=== PATIENT | male | born 1945 | race Caucasian/White ===

== ENCOUNTER → 2016-06-28 | Outpatient (REF) | payer MEDICARE, BC ==
[~2016-06-28] MED LIST: /AMIO20TA; /DILT30TAB; /GLIM2TA; ACET65TA; ALBU83IN; ASPI81TA3; COMBVENT; FLON0.05; GLUC1000; LEVO100T; LISI5TAB; PROV90AE; SIMV80TA; VARE1TA; VIAGRA; advair diskus; coumadin
[2016-06-28 12:40] LABS: ALBUMIN 3.7 GM/DL (3.2-5.2); ALBUMIN/GLOBULIN RATIO 1.23 (1.00-1.93); BILIRUBIN,TOTAL 0.4 MG/DL (0.2-1.0); CALCIUM LEVEL 8.8 MG/DL (8.8-10.2); CREATININE FOR GFR 2.2 MG/DL (0.70-1.30); GLOMERULAR FILTRATION RATE 31.5 (>42); POTASSIUM SERUM 4.5 MEQ/L (3.5-5.1); TOTAL PROTEIN 6.7 GM/DL (6.4-8.2)
[2016-06-28 12:50] LABS: MEAN CORPUSCULAR HEMOGLOBIN 32.1 pg (27.0-33.0); MEAN CORPUSCULAR HGB CONC 32.8 g/dl (32.0-36.5); MEAN CORPUSCULAR VOLUME 97.8 fl (80.0-96.0); RED CELL DISTRIBUTION WIDTH 13.1 % (11.5-14.5); WHITE BLOOD COUNT 7.8 K/mm3 (4.0-10.0)
== END ==
LOC: M SFHCADAM 10:19
PROVIDERS: ATTEND Family Medicine
DX: I12.9 Hypertensive chronic kidney disease with stage 1 through stage 4 chronic kidney disease, or unspecified chronic kidney disease (principal); N18.3 Chronic kidney disease, stage 3 (moderate); E11.40 Type 2 diabetes mellitus with diabetic neuropathy, unspecified; E78.2 Mixed hyperlipidemia; Z51.81 Encounter for therapeutic drug level monitoring; Z79.01 Long term (current) use of anticoagulants; Z23 Encounter for immunization
CPT/HCPCS: 80053; 80061; 82306; 83036; 85027; 85610; 90662; G0008; G0463

== ENCOUNTER → 2016-09-22 | Outpatient (CLI) | payer MEDICARE, BC ==
--- NOTE | 2016-09-22 12:12 | REP ---
Scarce NO lumbar spine five views: Comparison is 05/31/2006. There are abdominal right upper quadrant surgical clips. Vertebral body heights and alignment are normal and unchanged. There is mild degenerative disc disease at L5 S1. This is an interval change. The remainder of the disc spaces are unremarkable. There is no spondylolysis or spondylolisthesis. The pedicles, facets and sacroiliac articulations are unremarkable. Impression: Mild degenerative disc disease at L5 S1. Signed by Milo Rajan MD 09/22/2016 12:04 P
== END ==
LOC: M ADAMS 11:26
PROVIDERS: ATTEND Family Medicine
DX: M51.37 Other intervertebral disc degeneration, lumbosacral region (principal); Z51.81 Encounter for therapeutic drug level monitoring; Z79.01 Long term (current) use of anticoagulants

== ENCOUNTER → 2016-12-13 | Outpatient (REF) | payer MEDICARE, BC ==
[2016-12-13 20:00] LABS: MEAN CORPUSCULAR HEMOGLOBIN 32.1 pg (27.0-33.0); MEAN CORPUSCULAR VOLUME 103.6 fl (80.0-96.0); RED CELL DISTRIBUTION WIDTH 13.6 % (11.5-14.5); WHITE BLOOD COUNT 13.4 K/mm3 (4.0-10.0)
[2016-12-13 20:07] LABS: ALBUMIN 3.3 GM/DL (3.2-5.2); BILIRUBIN,TOTAL 0.6 MG/DL (0.2-1.0); CALCIUM LEVEL 8.4 MG/DL (8.8-10.2); CREATININE FOR GFR 2.33 MG/DL (0.70-1.30); GLOMERULAR FILTRATION RATE 29.4 (>42); POTASSIUM SERUM 4.3 MEQ/L (3.5-5.1); TOTAL PROTEIN 6.6 GM/DL (6.4-8.2)
== END ==
LOC: M SFHCADAM 15:16
PROVIDERS: ATTEND Family Medicine
DX: N18.3 Chronic kidney disease, stage 3 (moderate) (principal); E11.40 Type 2 diabetes mellitus with diabetic neuropathy, unspecified; I48.91 Unspecified atrial fibrillation; Z51.81 Encounter for therapeutic drug level monitoring; Z79.01 Long term (current) use of anticoagulants
CPT/HCPCS: 80053; 85027; 85610; G0463

== ENCOUNTER → 2017-05-25 | Outpatient (CLI) | payer MEDICARE, BC ==
[2017-05-25 13:57] LABS: ANION GAP 4 MEQ/L (8-16); BLOOD UREA NITROGEN 42 MG/DL (7-18); CARBON DIOXIDE LEVEL 35 MEQ/L (21-32); CHLORIDE LEVEL 102 MEQ/L (98-107); CREATININE FOR GFR 2.12 MG/DL (0.70-1.30); GLOMERULAR FILTRATION RATE 32.8 (>42); GLUCOSE, FASTING 185 MG/DL (70-100); POTASSIUM SERUM 4.6 MEQ/L (3.5-5.1); SODIUM LEVEL 141 MEQ/L (136-145)
[2017-05-25 14:06] LABS: ESTIMATED AVERAGE GLUCOSE 194 MG/DL (60-110); HEMOGLOBIN A1c 8.4 %
== END ==
LOC: M WUC 10:26
DX: E11.65 Type 2 diabetes mellitus with hyperglycemia (principal)
CPT/HCPCS: 83735

== ENCOUNTER → 2017-05-25 | Outpatient (CLI) | payer MEDICARE, BC ==
[2017-05-25 13:56] LABS: ALBUMIN 3.7 GM/DL (3.2-5.2); ANION GAP 3 MEQ/L (8-16); BLOOD UREA NITROGEN 44 MG/DL (7-18); CALCIUM LEVEL 8.9 MG/DL (8.8-10.2); CARBON DIOXIDE LEVEL 35 MEQ/L (21-32); CHLORIDE LEVEL 102 MEQ/L (98-107); GLOMERULAR FILTRATION RATE 33.1 (>42); GLUCOSE, FASTING 179 MG/DL (70-100); MAGNESIUM LEVEL 2.2 MG/DL (1.8-2.4); PHOSPHORUS LEVEL 2.9 MG/DL (2.5-4.9); POTASSIUM SERUM 4.7 MEQ/L (3.5-5.1); SODIUM LEVEL 140 MEQ/L (136-145)
== END ==
LOC: M WUC 10:31
DX: I50.32 Chronic diastolic (congestive) heart failure (principal); I48.0 Paroxysmal atrial fibrillation

== ENCOUNTER → 2017-05-31 | Outpatient (REF) | payer MEDICARE, BC | LOC: M SFHCLERA 12:40 | DX: L98.9 Disorder of the skin and subcutaneous tissue, unspecified (principal); C44.42 Squamous cell carcinoma of skin of scalp and neck (principal) | CPT/HCPCS: 11100; 88305 ==

== ENCOUNTER → 2017-06-29 | Outpatient (CLI) | payer MEDICARE, BC | LOC: M RAD 12:18 | DX: N18.4 Chronic kidney disease, stage 4 (severe) (principal) | CPT/HCPCS: 76775 ==

== ENCOUNTER → 2017-08-07 | Outpatient (REF) | payer MEDICARE, BC | LOC: M SFHCLERA 08:58 | DX: L57.0 Actinic keratosis (principal) | CPT/HCPCS: 88305 ==

== ENCOUNTER → 2017-09-14 | Outpatient (CLI) | payer MEDICARE, BC ==
[2017-09-14 16:31] LABS: HEMATOCRIT 51.6 % (42.0-52.0); MEAN CORPUSCULAR HEMOGLOBIN 31.4 pg (27.0-33.0); MEAN CORPUSCULAR VOLUME 101.2 fl (80.0-96.0); PLATELET COUNT, AUTOMATED 197 10^3/uL (150-450); RED CELL DISTRIBUTION WIDTH 13.9 % (11.5-14.5); WHITE BLOOD COUNT 11.9 10^3/uL (4.0-10.0)
[2017-09-14 16:53] LABS: TOTAL 25(OH) VITAMIN D 74.5 NG/ML (30.0-100.0)
[2017-09-14 17:02] LABS: ALBUMIN 3.6 GM/DL (3.2-5.2); ALBUMIN/GLOBULIN RATIO 1.06 (1.00-1.93); ALKALINE PHOSPHATASE 117 U/L (45-117); ALT/SGPT 25 U/L (12-78); ANION GAP 6 MEQ/L (8-16); AST/SGOT 16 U/L (7-37); BILIRUBIN,TOTAL 0.6 MG/DL (0.2-1.0); BLOOD UREA NITROGEN 32 MG/DL (7-18); CALCIUM LEVEL 8.8 MG/DL (8.8-10.2); CARBON DIOXIDE LEVEL 33 MEQ/L (21-32); CHLORIDE LEVEL 103 MEQ/L (98-107); CHOLESTEROL LEVEL 133 MG/DL (<200); CHOLESTEROL RISK RATIO 2.955 (<5); CREATININE FOR GFR 2.13 MG/DL (0.70-1.30); FREE T4 1.37 NG/DL (0.76-1.46); GLOMERULAR FILTRATION RATE 32.6 (>42); GLUCOSE, FASTING 156 MG/DL (70-100); HDL CHOLESTEROL 45 MG/DL (>40); LDL CHOLESTEROL 51.2 MG/DL (<100); NON-HDL-C 88 MG/DL; POTASSIUM SERUM 4.7 MEQ/L (3.5-5.1); SODIUM LEVEL 142 MEQ/L (136-145); TRIGLYCERIDES LEVEL 184 MG/DL (<150)
[2017-09-14 17:12] LABS: ESTIMATED AVERAGE GLUCOSE 180 MG/DL (60-110); HEMOGLOBIN A1c 7.9 %
== END ==
LOC: M WUC 13:08
DX: N18.3 Chronic kidney disease, stage 3 (moderate) (principal); E11.40 Type 2 diabetes mellitus with diabetic neuropathy, unspecified; E11.22 Type 2 diabetes mellitus with diabetic chronic kidney disease; E03.8 Other specified hypothyroidism; E78.2 Mixed hyperlipidemia; E55.9 Vitamin D deficiency, unspecified
CPT/HCPCS: 84443

== ENCOUNTER → 2017-11-09 | Outpatient (CLI) | payer MEDICARE, BC | LOC: M RAD 10:24 | DX: F17.210 Nicotine dependence, cigarettes, uncomplicated (principal); Z12.2 Encounter for screening for malignant neoplasm of respiratory organs | CPT/HCPCS: G0297 ==

== ENCOUNTER → 2017-12-18 | Outpatient (REF) | payer MEDICARE, BC | LOC: M SFHCLERA 19:06 | DX: C44.41 Basal cell carcinoma of skin of scalp and neck (principal) | CPT/HCPCS: 88305 ==

== ENCOUNTER → 2018-01-18 | Outpatient (REF) | payer MEDICARE, BC | LOC: M SFHCLERA 09:12 | DX: C44.212 Basal cell carcinoma of skin of right ear and external auricular canal (principal) | CPT/HCPCS: 88305 ==

== ENCOUNTER → 2018-03-01 | Outpatient (CLI) | payer MEDICARE, BC ==
[2018-03-01 12:29] LABS: HEMATOCRIT 48.7 % (42.0-52.0); MEAN CORPUSCULAR HEMOGLOBIN 31.4 pg (27.0-33.0); MEAN CORPUSCULAR HGB CONC 30.8 g/dl (32.0-36.5); MEAN CORPUSCULAR VOLUME 102.1 fl (80.0-96.0); PLATELET COUNT, AUTOMATED 175 10^3/uL (150-450); RED BLOOD COUNT 4.77 10^6/uL (4.30-6.10); RED CELL DISTRIBUTION WIDTH 13.4 % (11.5-14.5); WHITE BLOOD COUNT 9.3 10^3/uL (4.0-10.0)
[2018-03-01 13:21] LABS: ALBUMIN 3.5 GM/DL (3.2-5.2); ALBUMIN/GLOBULIN RATIO 1.09 (1.00-1.93); ALKALINE PHOSPHATASE 107 U/L (45-117); ALT/SGPT 17 U/L (12-78); ANION GAP 6 MEQ/L (8-16); AST/SGOT 11 U/L (7-37); BILIRUBIN,TOTAL 0.4 MG/DL (0.2-1.0); BLOOD UREA NITROGEN 36 MG/DL (7-18); CALCIUM LEVEL 9.3 MG/DL (8.8-10.2); CARBON DIOXIDE LEVEL 36 MEQ/L (21-32); CHLORIDE LEVEL 99 MEQ/L (98-107); CREATININE FOR GFR 2.05 MG/DL (0.70-1.30); GLUCOSE, FASTING 182 MG/DL (70-100); POTASSIUM SERUM 4.5 MEQ/L (3.5-5.1); SODIUM LEVEL 141 MEQ/L (136-145); TOTAL PROTEIN 6.7 GM/DL (6.4-8.2)
[2018-03-01 18:30] LABS: ESTIMATED AVERAGE GLUCOSE 200 MG/DL (60-110); HEMOGLOBIN A1c 8.6 %
== END ==
LOC: M WUC 10:00
DX: I48.91 Unspecified atrial fibrillation (principal); N18.3 Chronic kidney disease, stage 3 (moderate); E11.40 Type 2 diabetes mellitus with diabetic neuropathy, unspecified; E11.22 Type 2 diabetes mellitus with diabetic chronic kidney disease
CPT/HCPCS: 80053

== ENCOUNTER → 2018-03-06 | Outpatient (REF) | payer MEDICARE, BC ==
[2018-03-06 19:10] LABS: HEMATOCRIT 53.6 % (42.0-52.0); HEMOGLOBIN 16.7 g/dl (13.5-17.5); MEAN CORPUSCULAR HEMOGLOBIN 31.7 pg (27.0-33.0); MEAN CORPUSCULAR HGB CONC 31.2 g/dl (32.0-36.5); MEAN CORPUSCULAR VOLUME 101.9 fl (80.0-96.0); PLATELET COUNT, AUTOMATED 205 10^3/uL (150-450); RED BLOOD COUNT 5.26 10^6/uL (4.30-6.10); RED CELL DISTRIBUTION WIDTH 13.5 % (11.5-14.5); WHITE BLOOD COUNT 12.8 10^3/uL (4.0-10.0)
[2018-03-06 19:12] LABS: ALBUMIN 3.6 GM/DL (3.2-5.2); ALBUMIN/GLOBULIN RATIO 1.06 (1.00-1.93); ALKALINE PHOSPHATASE 121 U/L (45-117); ALT/SGPT 19 U/L (12-78); ANION GAP 6 MEQ/L (8-16); AST/SGOT 15 U/L (7-37); BILIRUBIN,TOTAL 0.5 MG/DL (0.2-1.0); BLOOD UREA NITROGEN 35 MG/DL (7-18); CALCIUM LEVEL 9.3 MG/DL (8.8-10.2); CARBON DIOXIDE LEVEL 34 MEQ/L (21-32); CHLORIDE LEVEL 100 MEQ/L (98-107); CHOLESTEROL LEVEL 153 MG/DL (<200); CHOLESTEROL RISK RATIO 3.122 (<5); CREATININE FOR GFR 2.16 MG/DL (0.70-1.30); GLUCOSE, FASTING 225 MG/DL (70-100); HDL CHOLESTEROL 49 MG/DL (>40); LDL CHOLESTEROL 61 MG/DL (<100); NON-HDL-C 104 MG/DL; POTASSIUM SERUM 4.3 MEQ/L (3.5-5.1); SODIUM LEVEL 140 MEQ/L (136-145); TRIGLYCERIDES LEVEL 217 MG/DL (<150)
[2018-03-06 19:16] LABS: TOTAL 25(OH) VITAMIN D 67.9 NG/ML (30.0-100.0)
[2018-03-06 19:43] LABS: ESTIMATED AVERAGE GLUCOSE 206 MG/DL (60-110); HEMOGLOBIN A1c 8.8 %
== END ==
LOC: M SFHCADAM 10:47
DX: N18.3 Chronic kidney disease, stage 3 (moderate) (principal); E11.40 Type 2 diabetes mellitus with diabetic neuropathy, unspecified; E11.22 Type 2 diabetes mellitus with diabetic chronic kidney disease; E03.8 Other specified hypothyroidism; E78.2 Mixed hyperlipidemia; E55.9 Vitamin D deficiency, unspecified
CPT/HCPCS: 84443

== ENCOUNTER → 2018-03-06 | Outpatient (CLI) | payer MEDICARE, BC | LOC: M ADAMS 11:09 | DX: J44.1 Chronic obstructive pulmonary disease with (acute) exacerbation (principal); N18.3 Chronic kidney disease, stage 3 (moderate); E11.40 Type 2 diabetes mellitus with diabetic neuropathy, unspecified; E11.22 Type 2 diabetes mellitus with diabetic chronic kidney disease; E03.8 Other specified hypothyroidism; E78.2 Mixed hyperlipidemia; E55.9 Vitamin D deficiency, unspecified | CPT/HCPCS: 71046; 84443 ==

== ENCOUNTER → 2018-05-29 | Outpatient (CLI) | payer MEDICARE, BC ==
[~2018-05-29] MED LIST changes: +AMOX/K; +NORCOTAB PO; +WARF-23
[2018-05-29 19:13] LABS: INR 1.87; PROTHROMBIN TIME 21.9 SECONDS (12.1-14.4)
== END ==
LOC: M WUC 13:39
PROVIDERS: ATTEND Family Medicine
DX: I48.91 Unspecified atrial fibrillation (principal)

== ENCOUNTER → 2018-07-09 | Outpatient (CLI) | payer MEDICARE, BC ==
--- NOTE | 2018-07-09 17:20 | REP ---
Urinary tract sonography: History: Diabetes. Chronic kidney disease stage III. Comparison renal sonography is June 29, 2017. Comparison CT study of the abdomen and pelvis is from December 21, 2015. Sonographic findings: Scanning at the level of the urinary bladder shows emptying ureteral jets from the right ureter but not the left on color Doppler interrogation of the urinary bladder lumen. There is moderate left-sided hydronephrosis. There is a shadowing 1.5 cm calculus in the lower pole collecting system region of the left kidney. Another 1.5 cm area of echogenic tissue is seen in the lower pole which may be further intrarenal nephrolithiasis. There is a cyst in the periphery of the right kidney 1.7 cm in greatest diameter at mid renal level. No mass lesion is seen. The kidneys are somewhat atrophic. The right kidney measures 8.7 x 5.7 x 4.7 cm. Left renal dimensions are 8.7 x 5.7 x 6.4 cm. The Doppler resistive index in the intralobar arteries of the left kidney is elevated to 0.82. Impression: Evidence of obstructive hydronephrosis left kidney with intrarenal nephrolithiasis on the left. Probable ureteral calculus. Bilateral renal cortical atrophy. Small cyst right kidney. Electronically Signed by Tenzin Esteves MD 07/09/2018 07:16 P
== END ==
LOC: M RAD 12:39
PROVIDERS: ATTEND Internal Medicine Nephrology
DX: N18.3 Chronic kidney disease, stage 3 (moderate) (principal); N28.1 Cyst of kidney, acquired; N26.1 Atrophy of kidney (terminal); E11.22 Type 2 diabetes mellitus with diabetic chronic kidney disease

== ENCOUNTER → 2018-07-16 | Outpatient (CLI) | payer MEDICARE, BC ==
[2018-07-16 14:39] LABS: HEMATOCRIT 48.5 % (42.0-52.0); HEMOGLOBIN 15.2 g/dl (13.5-17.5); MEAN CORPUSCULAR HEMOGLOBIN 31.8 pg (27.0-33.0); MEAN CORPUSCULAR HGB CONC 31.3 g/dl (32.0-36.5); MEAN CORPUSCULAR VOLUME 101.5 fl (80.0-96.0); PLATELET COUNT, AUTOMATED 197 10^3/uL (150-450); RED BLOOD COUNT 4.78 10^6/uL (4.30-6.10); WHITE BLOOD COUNT 9.8 10^3/uL (4.0-10.0)
[2018-07-16 14:54] LABS: INR 1.99
[2018-07-16 14:57] LABS: CREATININE FOR GFR 2.65 MG/DL (0.70-1.30)
[2018-07-16 14:58] LABS: ALBUMIN 3.4 GM/DL (3.2-5.2); BILIRUBIN,TOTAL 0.6 MG/DL (0.2-1.0); CHOLESTEROL RISK RATIO 3.372 (<5); FREE T4 1.31 NG/DL (0.76-1.46); GLOMERULAR FILTRATION RATE 25.3 (>42); POTASSIUM SERUM 4.7 MEQ/L (3.5-5.1); THYROID STIMULATING HORMONE 1.57 uIU/ML (0.358-3.740); TOTAL PROTEIN 6.8 GM/DL (6.4-8.2)
[2018-07-16 15:21] LABS: HEMOGLOBIN A1c 8.1 %
== END ==
LOC: M WUC 12:12
PROVIDERS: ATTEND Family Medicine
DX: N18.3 Chronic kidney disease, stage 3 (moderate) (principal); E11.40 Type 2 diabetes mellitus with diabetic neuropathy, unspecified; E03.8 Other specified hypothyroidism; E78.2 Mixed hyperlipidemia; I48.91 Unspecified atrial fibrillation

== ENCOUNTER → 2018-07-18 | Outpatient (CLI) | payer MEDICARE, BC ==
--- NOTE | 2018-07-18 15:43 | REP ---
Clinical: Chronic renal disease and nephrolithiasis. Comparison: 12/21/2015. Technique: Axial noncontrast images from the lung bases to the pubic symphysis with coronal and sagittal re-formations. Findings: Left kidney demonstrates moderate hydroureteronephrosis with few nonobstructing lower pole calculi measuring up to 3 mm as well as obstructing mid ureteral calculi measuring between 2 and 4 mm (images [id number]). The more distal left ureter appears collapsed to the UVJ and bladder. The right kidney is without nephrolithiasis or hydroureteronephrosis and includes stable 1.6 cm exophytic mid pole cyst. Mild chronic perinephric stranding noted bilaterally. Liver, spleen, pancreas, and bilateral adrenal glands are normal. Evidence of prior cholecystectomy. The enteric system is without obstruction or acute inflammatory process. Normal terminal ileum and appendix are identified in the right lower quadrant. Colonic and sigmoid diverticulosis noted without acute diverticulitis. Pelvis demonstrates normal bladder and age appropriate prostate/seminal vesicles. No ascites. No free air. No adenopathy. Atherosclerotic changes to the aorta and vasculature noted without aneurysm. Musculoskeletal structures demonstrate degenerative changes without focal osseous abnormality. Lung bases are clear. Impression: 1. Left-sided intrarenal and obstructing ureteral calculi with associated moderate hydronephrosis. Stable 1.6 cm exophytic right renal cyst. Mild chronic bilateral perinephric stranding and left renovascular calcifications. 2. Diverticulosis without acute diverticulitis. Electronically Signed by Junior Hendricks MD 07/18/2018 03:35 P
== END ==
LOC: M RAD 13:59
PROVIDERS: ATTEND Internal Medicine Nephrology
DX: N18.3 Chronic kidney disease, stage 3 (moderate) (principal); N13.1 Hydronephrosis with ureteral stricture, not elsewhere classified; N20.0 Calculus of kidney; N20.1 Calculus of ureter; N28.1 Cyst of kidney, acquired

== ENCOUNTER → 2018-07-26 | Outpatient (REF) | payer MEDICARE, BC ==
[~2018-07-26] MED LIST changes: -/AMIO20TA; -/DILT30TAB; -/GLIM2TA; +AMAR1TAB5; +AMIO1TAB; +DILT1TAB11; +HYDR-3715 PO; -NORCOTAB PO
[2018-07-26 14:20] LABS: APPEARANCE, URINE HAZY (CLEAR); BACTERIA, URINE AUTO 1+ (NEGATIVE); BILIRUBIN, URINE AUTO NEGATIVE (NEGATIVE); BLOOD, URINE BLOOD 1+ (NEGATIVE); COLOR, URINE YELLOW (YELLOW); GLUCOSE, URINE (UA) AUTO 2+ mg/dL (NEGATIVE); KETONE, URINE AUTO NEGATIVE (NEGATIVE); LEUKOCYTE ESTERASE, URINE AUTO TRACE (NEGATIVE); MUCUS, URINE SMALL (NEGATIVE); NITRITE, URINE AUTO NEGATIVE (NEGATIVE); PROTEIN, URINE AUTO 1+ mg/dL (NEGATIVE); RBC, URINE AUTO 2 /HPF (0-3); SPECIFIC GRAVITY URINE AUTO 1.016 (1.002-1.035); SQUAMOUS EPITHELIAL CELL UR AU 1 /HPF (0-6); UROBILINOGEN, URINE AUTO 0.2 mg/dL (0.0-2.0); WBC, URINE AUTO 10 /HPF (0-3)
== END ==
LOC: M SMT 13:33
PROVIDERS: ATTEND Nurse Practitioner Family
DX: N20.0 Calculus of kidney (principal)
CPT/HCPCS: 81001; 87086; G0463

== ENCOUNTER → 2018-08-23 | Outpatient (REF) | payer MEDICARE, BC ==
[2018-08-23 15:06] LABS: APPEARANCE, URINE HAZY (CLEAR); BACTERIA, URINE AUTO 1+ (NEGATIVE); BILIRUBIN, URINE AUTO NEGATIVE (NEGATIVE); BLOOD, URINE BLOOD 1+ (NEGATIVE); COLOR, URINE YELLOW (YELLOW); GLUCOSE, URINE (UA) AUTO 3+ mg/dL (NEGATIVE); KETONE, URINE AUTO NEGATIVE (NEGATIVE); LEUKOCYTE ESTERASE, URINE AUTO TRACE (NEGATIVE); MUCUS, URINE SMALL (NEGATIVE); NITRITE, URINE AUTO NEGATIVE (NEGATIVE); PROTEIN, URINE AUTO 2+ mg/dL (NEGATIVE); RBC, URINE AUTO 2 /HPF (0-3); SPECIFIC GRAVITY URINE AUTO 1.017 (1.002-1.035); SQUAMOUS EPITHELIAL CELL UR AU 0 /HPF (0-6); WBC, URINE AUTO 11 /HPF (0-3)
== END ==
LOC: M SMT 13:08
PROVIDERS: ATTEND Nurse Practitioner Family
DX: N20.0 Calculus of kidney (principal)
CPT/HCPCS: 81001; 87086; G0463

== ENCOUNTER → 2018-08-27 | Outpatient (CLI) | payer MEDICARE, BC ==
[2018-08-27 17:28] LABS: INR 1.91; PROTHROMBIN TIME 22.2 SECONDS (12.1-14.4)
== END ==
LOC: M WUC 12:20
PROVIDERS: ATTEND Family Medicine
DX: I48.91 Unspecified atrial fibrillation (principal)

== ENCOUNTER → 2018-08-29 | Outpatient (CLI) | payer MEDICARE, BC ==
--- NOTE | 2018-08-29 15:51 | REP ---
RENAL AND BLADDER ULTRASOUND: Real-time sonographic evaluation of the kidneys performed. Kidneys appear somewhat hyperechoic suggesting medical renal disease. Right kidney measures 9.4 x 4.8 x 4.4 cm and left kidney 10.7 x 5.5 x 5.6 cm. There is no right hydronephrosis. There is moderate left hydronephrosis. Proximal left ureter is dilated as well. Study is somewhat limited due to bowel gas and body habitus. Cyst in the mid right kidney laterally measures 1.5 x 1.6 x 1.9 cm. There appears to be two calcifications in the left lower collecting system measuring 8 mm and 4 mm in diameter. Urinary bladder is not well visualized, mildly distended, with no gross mass or calculus. Right ureteral jet is clearly visualized with Doppler color evaluation while the left ureteral jet could not be seen. IMPRESSION: Somewhat hyperechoic echotexture of the kidneys suggests medical renal disease. There is moderate left hydronephrosis as seen on the CT of 07/18/2018. This is likely due to persistent ureteral obstruction by a calculus which was seen on the prior CT. No left ureteral jet is visualized. There are two subcentimeter intrarenal calculi in the lower pole of the left kidney. There is no right hydronephrosis. There is a right renal cyst. Electronically Signed by Milo Bronson MD 08/29/2018 04:11 P
== END ==
LOC: M RAD 12:32
PROVIDERS: ATTEND Nurse Practitioner Family
DX: N20.0 Calculus of kidney (principal); N13.30 Unspecified hydronephrosis; Q61.02 Congenital multiple renal cysts

== ENCOUNTER → 2018-08-30 | Outpatient (REF) | payer MEDICARE, BC ==
[~2018-08-30] MED LIST changes: +ATOR80TA59; +BUDE0.5S6; +CALC1CAP31; +COMBAER6; +DILT180C28; +GLIP5TAB8; +HYDR2.5C; +IPRA0.00; +LEVO100T5; +TAMS1CAP17; +VENL75CA47; +VITA500045
== END ==
LOC: M SFHCPLAZ 17:40
PROVIDERS: ATTEND Dermatology
DX: L57.0 Actinic keratosis (principal)

== ENCOUNTER → 2018-09-19 | Outpatient (CLI) | payer MEDICARE, BC ==
--- NOTE | 2018-09-19 16:01 | REP ---
Clinical: Preoperative assessment. Nephrolithiasis . Comparison: 03/06/2018 . Technique: PA and lateral. Findings: The mediastinum and cardiac silhouette are within normal limits. Dual lead pacemaker in satisfactory position. The lung tran demonstrate chronic stable changes without acute consolidation, effusion, or pneumothorax. The skeletal structures are intact and normal. Impression: 1. No acute cardiopulmonary process. Electronically Signed by Junior Hendricks MD 09/19/2018 03:53 P
[2018-09-19 20:09] LABS: CREATININE FOR GFR 2.43 MG/DL (0.70-1.30); GLOMERULAR FILTRATION RATE 27.9 (>42); POTASSIUM SERUM 4.3 MEQ/L (3.5-5.1)
[2018-09-19 20:23] LABS: HEMATOCRIT 48.1 % (42.0-52.0); HEMOGLOBIN 14.8 g/dl (13.5-17.5); MEAN CORPUSCULAR HEMOGLOBIN 31.3 pg (27.0-33.0); MEAN CORPUSCULAR HGB CONC 30.8 g/dl (32.0-36.5); MEAN CORPUSCULAR VOLUME 101.7 fl (80.0-96.0); PLATELET COUNT, AUTOMATED 207 10^3/uL (150-450); RED BLOOD COUNT 4.73 10^6/uL (4.30-6.10); WHITE BLOOD COUNT 10.7 10^3/uL (4.0-10.0)
[2018-09-19 20:26] LABS: APPEARANCE, URINE HAZY (CLEAR); BACTERIA, URINE AUTO NEGATIVE (NEGATIVE); BILIRUBIN, URINE AUTO NEGATIVE (NEGATIVE); BLOOD, URINE BLOOD 1+ (NEGATIVE); COLOR, URINE YELLOW (YELLOW); GLUCOSE, URINE (UA) AUTO 2+ mg/dL (NEGATIVE); GRANULAR CAST, URINE AUTO 8 /LPF; KETONE, URINE AUTO NEGATIVE (NEGATIVE); LEUKOCYTE ESTERASE, URINE AUTO NEGATIVE (NEGATIVE); NITRITE, URINE AUTO NEGATIVE (NEGATIVE); PROTEIN, URINE AUTO 1+ mg/dL (NEGATIVE); RBC, URINE AUTO 18 /HPF (0-3); SPECIFIC GRAVITY URINE AUTO 1.013 (1.002-1.035); SQUAMOUS EPITHELIAL CELL UR AU 0 /HPF (0-6); UROBILINOGEN, URINE AUTO 0.2 mg/dL (0.0-2.0); WBC, URINE AUTO 5 /HPF (0-3)
[2018-09-19 20:32] LABS: INR 1.81; PROTHROMBIN TIME 21.3 SECONDS (12.1-14.4)
[2018-09-19 20:33] LABS: PARTIAL THROMBOPLASTIN TIME 39.2 SECONDS (25.4-37.6)
== END ==
LOC: M WUC 15:41
PROVIDERS: ATTEND Nurse Practitioner Family
DX: Z01.818 Encounter for other preprocedural examination (principal); N20.0 Calculus of kidney; Z79.01 Long term (current) use of anticoagulants

== ENCOUNTER → 2018-09-21 | Outpatient (REF) | payer MEDICARE, BC ==
[2018-09-21 20:43] LABS: APPEARANCE, URINE HAZY (CLEAR); BACTERIA, URINE AUTO NEGATIVE (NEGATIVE); BILIRUBIN, URINE AUTO NEGATIVE (NEGATIVE); BLOOD, URINE BLOOD 2+ (NEGATIVE); COLOR, URINE YELLOW (YELLOW); GLUCOSE, URINE (UA) AUTO 3+ mg/dL (NEGATIVE); KETONE, URINE AUTO NEGATIVE (NEGATIVE); LEUKOCYTE ESTERASE, URINE AUTO TRACE (NEGATIVE); MUCUS, URINE SMALL (NEGATIVE); NITRITE, URINE AUTO NEGATIVE (NEGATIVE); PROTEIN, URINE AUTO 2+ mg/dL (NEGATIVE); RBC, URINE AUTO 24 /HPF (0-3); SPECIFIC GRAVITY URINE AUTO 1.014 (1.002-1.035); SQUAMOUS EPITHELIAL CELL UR AU 0 /HPF (0-6); UROBILINOGEN, URINE AUTO 0.2 mg/dL (0.0-2.0); WBC, URINE AUTO 8 /HPF (0-3)
== END ==
LOC: M SMT 09:35
PROVIDERS: ATTEND Nurse Practitioner Family
DX: Z01.818 Encounter for other preprocedural examination (principal); N20.0 Calculus of kidney

== ENCOUNTER 2018-09-25 12:06 | Day surgery (SDC) | payer MEDICARE, BC ==
[~2018-09-25] VITALS: Ht 177.8 cm; Wt 90.7 kg
[~2018-09-25 12:06] MED LIST changes: +LR 1,000 ML IV SCH
[2018-09-25 13:02] LABS: INR 1.02; PROTHROMBIN TIME 13.5 SECONDS (12.1-14.4)
[2018-09-25] MEDS ORDERED: CONRAY-60 60% 50ML VIAL (Q9961) As Ordered ONE (13:25)
[2018-09-25] MEDS ORDERED: PROPOFOL 200 MG/20 ML VIAL As Ordered ONE (14:18)
[2018-09-25] MEDS ORDERED: MIDAZOLAM INJ 2 MG/2 ML VIAL (J2250) As Ordered ONE (14:18)
[2018-09-25] MEDS ORDERED: LIDOCAINE 2% INJ 100 MG/5 ML SDV (FOR ANES.) As Ordered ONE (14:18)
[2018-09-25] MEDS ORDERED: fentaNYL 100 MCG/2 ML INJECTION (J3010) As Ordered ONE (14:18)
[2018-09-25] MEDS ORDERED: ROCURONIUM BROMIDE 50 MG/5 ML VIAL As Ordered ONE (14:34)
[2018-09-25] MEDS ORDERED: VASOPRESSIN INJ 20 UNITS/ML VIAL As Ordered ONE (14:46)
[2018-09-25] MEDS ORDERED: ePHEDrine SULFATE 25 MG/5 ML(5MG/ML) SYRINGE As Ordered ONE (14:47)
[2018-09-25] MEDS ORDERED: PHENYLephrine HCL 500 MCG/5 ML (100MCG/ML) SYRINGE (J2370) As Ordered ONE ×2 (14:47→15:12)
[2018-09-25] MEDS ORDERED: dexameTHASONE 4 MG/ML 1ML VIAL (J1100) As Ordered ONE (14:55)
[2018-09-25] MEDS ORDERED: ONDANSETRON 4MG/2ML VIAL (J2405) As Ordered ONE (15:05)
[2018-09-25] MEDS ORDERED: SUGAMMADEX SODIUM 500 MG/5 ML VIAL (BRIDION) As Ordered ONE (15:17)
--- NOTE | 2018-09-25 15:55 | REP ---
C-ARM VIEWS DURING PLACEMENT OF LEFT URETERAL STENT: Three C-Arm views are performed. There is placement of a left ureteral stent with the proximal end coiled in the left renal pelvis and the distal end coiled in the urinary bladder. There is partial opacification of the left pelvicaliceal system with contrast. 7 seconds of fluoroscopy time utilized. Electronically Signed by Milo Bronson MD 09/27/2018 08:41 A
[2018-09-25] MEDS ORDERED: MORPHINE 10 MG/ML 1ML VIAL (J2270) IV PRN (16:15)
[2018-09-25] MEDS ORDERED: fentaNYL 100 MCG/2 ML INJECTION (J3010) IV PRN (16:15)
[2018-09-25] MEDS ORDERED: LR 1,000 ML IV SCH (16:15)
[2018-09-25] MEDS ORDERED: oxyBUTYnin 5 MG TAB PO PRN (16:15)
[2018-09-25] MEDS ORDERED: ONDANSETRON 4MG/2ML VIAL (J2405) IV PRN (16:15)
--- NOTE | 2018-09-25 16:37 | RO ---
DATE OF PROCEDURE: 09/25/2018 PREPROCEDURE DIAGNOSIS: Left kidney and ureteral stones. POSTPROCEDURE DIAGNOSIS: Left kidney and ureteral stones. PROCEDURE: Cystoscopy, left ureteroscopy with basket extraction of stones, left retrograde pyelogram with intraoperative interpretation of images, left ureteral stent placement. SURGEON: Dr. Choco Gilmore NURSE HEALTHCARE MANAGER: None. ANESTHESIA: General. OPERATIVE INDICATIONS: This is a 72-year-old male who approximately 2 months ago was found to have two obstructing mid left ureteral stones, as well as several smaller stones inside the left kidney. He was given a trial of passage and on subsequent ultrasound was still seen to have moderate left hydronephrosis, indicating that the stones did not pass. He was brought to the operating room today for treatment of the stones. DESCRIPTION OF PROCEDURE: The patient was brought to the operating room and general anesthesia induced. Prophylactic antibiotics were infused. He was then placed in the dorsal lithotomy position and prepped and draped in the usual sterile fashion. A rigid cystoscope was then inserted into the urethral meatus and advanced to the bladder. A guidewire was advanced up the left collecting system. I then went up the left collecting system alongside the guidewire and within the distal ureter, several stones measuring between 3-4 mm were seen. All these stones were removed using a basket. I then examined the more proximal ureter, and no stones were seen in the ureter. I then removed the short semi-rigid ureteroscope and advanced a ureteral access sheath up into the left collecting system. I went up the access sheath with a flexible ureteroscope. I then examined the kidney thoroughly, and only very tiny stone debris was seen inside the left kidney. No large stones were seen. A retrograde pyelogram was performed, notable for moderate to severe left hydronephrosis. No extravasation. I then withdrew the ureteroscope along with the access sheath and no stones were seen in the proximal to mid ureter. The distal ureter was also free of stones at this point. At this point, the previously placed wire was utilized to advance a 6-Yi x 22-32 cm JJ ureteral stent up into the left collecting system. The wire was then removed, and there were adequate curls of the stent in the left renal pelvis and in the bladder. The bladder was then emptied of all fluids and this marked the conclusion of the procedure. The patient was then taken out of the dorsal lithotomy position, awakened from anesthesia and transported to the recovery room in stable condition. Estimated blood loss: 5 mL. Complications: None. Specimens: Kidney stone fragments. PLAN: The patient will followup in the clinic in a week or two for stent removal.
[2018-09-25] MEDS ORDERED: ACETAMINOPHEN 1000MG 100ML IV BTL (OFIRMEV) (J0131 PER 10MG) As Ordered ONE (16:40)
[2018-09-25 18:15] VITALS: BP 176/84
== END 2018-09-25 18:22 | disposition home or self-care (01) ==
LOC: M SDC 12:06
PROVIDERS: ATTEND Urology
DX: N20.0 Calculus of kidney (principal); N20.1 Calculus of ureter; I10 Essential (primary) hypertension; E78.5 Hyperlipidemia, unspecified; Z95.0 Presence of cardiac pacemaker; E03.9 Hypothyroidism, unspecified; E11.9 Type 2 diabetes mellitus without complications; J44.9 Chronic obstructive pulmonary disease, unspecified; F17.210 Nicotine dependence, cigarettes, uncomplicated; Z79.01 Long term (current) use of anticoagulants; N40.0 Benign prostatic hyperplasia without lower urinary tract symptoms; Z92.3 Personal history of irradiation; Z88.0 Allergy status to penicillin; Z88.2 Allergy status to sulfonamides; Z79.899 Other long term (current) drug therapy
CPT/HCPCS: 36415; 52332; 52352; 74420; 82360; 85610; 88300; C1769; C1894; J0131; J0690; J1100; J2250; J2370; J2405; J3010; Q9961

== ENCOUNTER → 2018-10-16 | Outpatient (REF) | payer MEDICARE, BC ==
[~2018-10-16] MED LIST changes: -LR 1,000 ML IV SCH
[2018-10-16 13:53] LABS: APPEARANCE, URINE CLEAR (CLEAR); BACTERIA, URINE AUTO NEGATIVE (NEGATIVE); BILIRUBIN, URINE AUTO NEGATIVE (NEGATIVE); BLOOD, URINE BLOOD NEGATIVE (NEGATIVE); COLOR, URINE YELLOW (YELLOW); GLUCOSE, URINE (UA) AUTO 2+ mg/dL (NEGATIVE); KETONE, URINE AUTO NEGATIVE (NEGATIVE); LEUKOCYTE ESTERASE, URINE AUTO NEGATIVE (NEGATIVE); MUCUS, URINE SMALL (NEGATIVE); NITRITE, URINE AUTO NEGATIVE (NEGATIVE); PROTEIN, URINE AUTO 2+ mg/dL (NEGATIVE); RBC, URINE AUTO 0 /HPF (0-3); SQUAMOUS EPITHELIAL CELL UR AU 0 /HPF (0-6); WBC, URINE AUTO 1 /HPF (0-3)
== END ==
LOC: M SMT 12:50
PROVIDERS: ATTEND Urology
DX: N20.0 Calculus of kidney (principal)
CPT/HCPCS: 81001; 87086; G0463

== ENCOUNTER → 2018-10-31 | Outpatient (CLI) | payer MEDICARE, BC ==
[2018-10-31 17:49] LABS: CALCIUM LEVEL 9.4 MG/DL (8.8-10.2); CREATININE FOR GFR 2.27 MG/DL (0.70-1.30); GLOMERULAR FILTRATION RATE 30.1 (>42); POTASSIUM SERUM 5.2 MEQ/L (3.5-5.1)
== END ==
LOC: M WUC 12:15
PROVIDERS: ATTEND Family Medicine
DX: E11.40 Type 2 diabetes mellitus with diabetic neuropathy, unspecified (principal)

== ENCOUNTER → 2018-12-06 | Outpatient (CLI) | payer MEDICARE, BC ==
--- NOTE | 2018-12-06 14:50 | REP ---
REASON FOR EXAM: Followup. The prior CT examinations of the chest have all been reviewed, the latest of which is dated 11/09/2017 along with reviewing lung base images obtained during abdominal CT scanning of 07/18/2018. The lack of intravenous contrast decreases the sensitivity of the exam. There is no mediastinal or hilar adenopathy. There are no pleural or pericardial effusions. There is no significant change in the appearance of the imaged upper abdomen. Prior abdominal CT 07/18/2018 showed left-sided hydronephrosis, which has abated since that exam. All other findings are stable. The imaged osseous structures are essentially unchanged and consistent with the patient's age of 73 years. Evaluation of the lung tran show stable biapical pleuroparenchymal scarring. The lung tran are hyperexpanded status quo. No new abnormal nodules, masses, or opacities have developed. Note is again made of an incidental calcified granuloma in the right middle lobe. There is mild cylindrical bronchiectasis seen particularly in the lung bases. IMPRESSION: No acute disease or significant change with findings as described above. Electronically Signed by Poncho Aldridge DO 12/06/2018 03:46 P
== END ==
LOC: M RAD 11:05
PROVIDERS: ATTEND Physician Assistant
DX: R91.8 Other nonspecific abnormal finding of lung field (principal); J47.9 Bronchiectasis, uncomplicated; J84.10 Pulmonary fibrosis, unspecified

== ENCOUNTER → 2019-01-17 | Outpatient (CLI) | payer MEDICARE, BC ==
[2019-01-17 18:02] LABS: INR 2.16; PROTHROMBIN TIME 23.9 SECONDS (11.8-14.0)
== END ==
LOC: M WUC 12:24
PROVIDERS: ATTEND Family Medicine
DX: Z79.01 Long term (current) use of anticoagulants (principal)

== ENCOUNTER → 2019-03-03 | Outpatient (CLI) | payer MEDICARE, BC ==
[2019-03-03 13:30] LABS: HEMATOCRIT 50.6 % (42.0-52.0); HEMOGLOBIN 15.5 g/dl (13.5-17.5); MEAN CORPUSCULAR HEMOGLOBIN 31.7 pg (27.0-33.0); MEAN CORPUSCULAR HGB CONC 30.6 g/dl (32.0-36.5); MEAN CORPUSCULAR VOLUME 103.5 fl (80.0-96.0); PLATELET COUNT, AUTOMATED 204 10^3/uL (150-450); RED BLOOD COUNT 4.89 10^6/uL (4.30-6.10); WHITE BLOOD COUNT 10.2 10^3/uL (4.0-10.0)
[2019-03-03 13:33] LABS: ALBUMIN 3.5 GM/DL (3.2-5.2); BILIRUBIN,TOTAL 0.5 MG/DL (0.2-1.0); CHOLESTEROL RISK RATIO 2.92 (<5); CREATININE FOR GFR 2.19 MG/DL (0.70-1.30); FREE T4 1.17 NG/DL (0.76-1.46); GLOMERULAR FILTRATION RATE 31.4 (>42); POTASSIUM SERUM 4.8 MEQ/L (3.5-5.1); THYROID STIMULATING HORMONE 1.12 uIU/ML (0.358-3.740); TOTAL PROTEIN 6.9 GM/DL (6.4-8.2)
[2019-03-03 13:44] LABS: HEMOGLOBIN A1c 7.5 %
== END ==
LOC: M WUC 10:43
PROVIDERS: ATTEND Family Medicine
DX: N18.3 Chronic kidney disease, stage 3 (moderate) (principal); E11.40 Type 2 diabetes mellitus with diabetic neuropathy, unspecified; E03.8 Other specified hypothyroidism; E78.2 Mixed hyperlipidemia

== ENCOUNTER → 2019-03-06 | Outpatient (REF) | payer MEDICARE, BC | LOC: M LAB REF 08:44 | PROVIDERS: ATTEND Dermatology | DX: L72.0 Epidermal cyst (principal); L57.0 Actinic keratosis ==

== ENCOUNTER → 2019-07-04 | Outpatient (REF) | payer MEDICARE, BC ==
[2019-07-04 12:50] LABS: INR 2.74; PROTHROMBIN TIME 28.9 SECONDS (11.8-14.0)
== END ==
LOC: M SFHCPLAZ 09:16
PROVIDERS: ATTEND Physician Assistant
DX: Z79.01 Long term (current) use of anticoagulants (principal)
CPT/HCPCS: 36415; 85610; G0463

== ENCOUNTER → 2019-09-17 | Outpatient (REF) | payer MEDICARE, BC ==
[2019-09-17 18:51] LABS: HEMATOCRIT 48.6 % (42.0-52.0); HEMOGLOBIN 15.2 g/dl (13.5-17.5); MEAN CORPUSCULAR HEMOGLOBIN 31.2 pg (27.0-33.0); MEAN CORPUSCULAR HGB CONC 31.3 g/dl (32.0-36.5); MEAN CORPUSCULAR VOLUME 99.8 fl (80.0-96.0); PLATELET COUNT, AUTOMATED 237 10^3/uL (150-450); RED BLOOD COUNT 4.87 10^6/uL (4.30-6.10); WHITE BLOOD COUNT 11.4 10^3/uL (4.0-10.0)
[2019-09-17 18:55] LABS: ALBUMIN 3.1 GM/DL (3.2-5.2); BILIRUBIN,TOTAL 1.2 MG/DL (0.2-1.0); CALCIUM LEVEL 8.8 MG/DL (8.8-10.2); CHOLESTEROL RISK RATIO 2.583 (<5); CREATININE FOR GFR 2.26 MG/DL (0.70-1.30); FREE T4 1.46 NG/DL (0.76-1.46); GLOMERULAR FILTRATION RATE 30.3 (>42); POTASSIUM SERUM 4.8 MEQ/L (3.5-5.1); THYROID STIMULATING HORMONE 0.694 uIU/ML (0.358-3.740); TOTAL PROTEIN 6.5 GM/DL (6.4-8.2)
[2019-09-17 20:58] LABS: HEMOGLOBIN A1c 8.2 %
== END ==
LOC: M SFHCADAM 14:32
PROVIDERS: ATTEND Family Medicine
DX: E11.40 Type 2 diabetes mellitus with diabetic neuropathy, unspecified (principal); I11.0 Hypertensive heart disease with heart failure; E03.8 Other specified hypothyroidism; E78.2 Mixed hyperlipidemia; F32.9 Major depressive disorder, single episode, unspecified; Z79.01 Long term (current) use of anticoagulants

== ENCOUNTER → 2019-12-25 | Outpatient (CLI) | payer MEDICARE, BC ==
--- NOTE | 2020-01-21 08:15 | REP ---
NON-CONTRAST CHEST CT DATE: 12/25/2019 at 08:20 a.m. CLINICAL: Followup abnormal lung field findings. TECHNIQUE: Axial noncontrast images from the thorax to the upper abdomen with coronal and sagittal reformations. COMPARISON: 12/06/2018. FINDINGS: The bilateral lung tran demonstrate mild chronic emphysematous changes including hyperinflation with minimal scattered scarring and very subtle early bronchiectasis. There are very subtle reticular nodular-type changes primarily noted in the right lower lobe, which appears slightly more pronounced than the prior examination. These findings suggest chronic changes, as well as the possibility of a subtle infiltrate. No significant consolidation, significant nodule, or mass lesion is appreciated. No pleural effusion. No pneumothorax. No axillary, hilar, or mediastinal adenopathy. Further evaluation of the mediastinum demonstrates atherosclerotic changes to the thoracic aorta and coronary arteries along with pacemaker wires in stable satisfactory position. No cardiomegaly or pericardial effusion. The tracheal bronchial tree is patent. Surrounding musculoskeletal structures are intact. Limited upper abdomen demonstrates normal bilateral adrenal glands, along with prior cholecystectomy. IMPRESSION: * Findings suggesting mild emphysematous disease. * Very subtle reticular nodular opacities primarily in the right lower lobe appear slightly more pronounced than prior examination. These findings may represent progressive chronic change, as well as a subtle pneumonia/pneumonitis. * No significant acute mediastinal or pleural parenchymal process otherwise appreciated. MTDD
== END ==
LOC: M RAD 08:06
PROVIDERS: ATTEND Physician Assistant
DX: R91.8 Other nonspecific abnormal finding of lung field (principal)

== ENCOUNTER 2020-02-04 14:47 | Emergency (ER) | payer MEDICARE, BC ==
[2020-02-04] MEDS ORDERED: NS 1,000 ML IV ONE (15:00)
--- NOTE | 2020-02-04 15:21 | REPVR ---
PROCEDURE INFORMATION: Exam: CT Head Without Contrast Exam date and time: 02/04/2020 3:06 PM Age: 74 years old Clinical indication: Altered mental status/memory loss TECHNIQUE: Imaging protocol: Computed tomography of the head without contrast. Radiation optimization: All CT scans at this facility use at least one of these dose optimization techniques: automated exposure control; mA and/or kV adjustment per patient size (includes targeted exams where dose is matched to clinical indication); or iterative reconstruction. Other technique: STROKE PROTOCOL was implemented. COMPARISON: No relevant prior studies available. FINDINGS: Brain: Examination reveals approximately 6.0 x 4.5 x 3.5 cm hyperdense acute intraparenchymal hemorrhage in the right temporal lobe surrounded by a small amount of hypodense vasogenic edema. There is mass effect with effacement of the right lateral ventricle and midline shift of 6 mm towards the left. There is mild ill-defined patchy hypodensity within the bilateral cerebral periventricular white matter, consistent with chronic microvascular ischemic changes. There is a chronic lacunar infarction in the right basal ganglia. There is mild diffuse cerebral atrophy present, consistent with this patient's age. Cerebral ventricles: The ventricular system demonstrates mild diffuse compensatory enlargement. Bones/joints: Unremarkable. No acute fracture. Paranasal sinuses: Visualized sinuses are unremarkable. No fluid levels. Mastoid air cells: Left mastoidectomy. Soft tissues: Unremarkable. IMPRESSION: 1. Examination reveals approximately 6.0 x 4.5 x 3.5 cm hyperdense acute intraparenchymal hemorrhage in the right temporal lobe surrounded by a small amount of hypodense vasogenic edema. There is mass effect with effacement of the right lateral ventricle and midline shift of 6 mm towards the left. 2. Left mastoidectomy. ASSESSMENT: ASPECTS (Ale Stroke Program Early CT Score) is 10. Electronically signed by: Darren Lopez On 02/04/2020 15:21:15 PM
--- NOTE | 2020-02-04 15:29 | REPVR ---
PROCEDURE INFORMATION: Exam: CT Cervical Spine Without Contrast Exam date and time: 02/04/2020 3:06 PM Age: 74 years old Clinical indication: Altered mental status TECHNIQUE: Imaging protocol: Computed tomography images of the cervical spine without contrast. Radiation optimization: All CT scans at this facility use at least one of these dose optimization techniques: automated exposure control; mA and/or kV adjustment per patient size (includes targeted exams where dose is matched to clinical indication); or iterative reconstruction. COMPARISON: DX SPINE LS COMPLETE 09/22/2016 11:31 AM FINDINGS: Vertebrae: There is moderate diffuse osteopenia. The cervical vertebral bodies are normal height and alignment.No acute fracture or dislocation is seen. Discs/Spinal canal/Neural foramina: There are multilevel degenerative changes including degenerative disc disease, spondylosis and facet degenerative changes. Epidural space: There is no evidence of epidural masses or hemorrhage. Prevertebral Space: The prevertebral soft tissues appear normal. Soft tissues: There is straightening of the cervical spine which could be secondary to positioning or muscle spasm. There are no soft tissue masses or fluid collections. Lungs: Lung apices are normal. Other findings: The study is slightly limited due to rotation. IMPRESSION: 1. No acute fracture or dislocation is seen. 2. The study is slightly limited due to rotation. Electronically signed by: Darren Lopez On 02/04/2020 15:29:33 PM
[2020-02-04 15:37] LABS: BASO % 0.2 % (0.0-1.0); EOS % 0.1 % (0.0-3.0); HEMATOCRIT 47.7 % (42.0-52.0); HEMOGLOBIN 14.9 g/dl (13.5-17.5); LYMPH # 1.1 10^3/uL (1.5-5.0); LYMPH % 8.4 % (24.0-44.0); MEAN CORPUSCULAR HEMOGLOBIN 30.8 pg (27.0-33.0); MEAN CORPUSCULAR HGB CONC 31.2 g/dl (32.0-36.5); MEAN CORPUSCULAR VOLUME 98.6 fl (80.0-96.0); MONO # 0.6 10^3/uL (0.0-0.8); MONO % 4.4 % (0.0-5.0); NEUTROPHILS % 86.3 % (36.0-66.0); PLATELET COUNT, AUTOMATED 194 10^3/uL (150-450); RED BLOOD COUNT 4.84 10^6/uL (4.30-6.10); WHITE BLOOD COUNT 12.7 10^3/uL (4.0-10.0)
[2020-02-04] MEDS ORDERED: ETOMIDATE INJ 20MG/10ML VIAL IV ONE (15:45)
[2020-02-04] MEDS ORDERED: SUCCINYLCHOLINE INJ 200 MG/10 ML VIAL (J0330) IV ONE (15:45)
[2020-02-04] MEDS ORDERED: PHYTONADIONE INJection 10 MG in NS 50 ML IV ONE (15:45)
[2020-02-04 15:53] LABS: INR 3.67; PROTHROMBIN TIME 37.3 SECONDS (12.5-14.3)
[2020-02-04 16:11] LABS: OSMOLALITY SERUM 303 MOSM/KG (280-301)
[2020-02-04] MEDS ORDERED: propofoL 1,000 MG in IV 1 EA IV SCH (16:11)
[2020-02-04 16:15] LABS: ALBUMIN 3.4 GM/DL (3.2-5.2); ALT/SGPT 32 U/L (12-78); BILIRUBIN,DIRECT 0.2 MG/DL (0.0-0.2); BILIRUBIN,TOTAL 0.7 MG/DL (0.2-1.0); ETHYL ALCOHOL (ETHANOL) < 0.003 % (0.000-0.010); SALICYLATE LEVEL < 1.7 MG/DL (5.0-30.0); THYROID STIMULATING HORMONE 0.384 uIU/ML (0.358-3.740)
[2020-02-04] MEDS ORDERED: PROPOFOL 1,000 MG/100 ML VIAL As Ordered ONE (16:15)
--- NOTE | 2020-02-04 16:23 | REPVR ---
PROCEDURE INFORMATION: Exam: XR Chest, 1 View Exam date and time: 02/04/2020 2:55 PM Age: 74 years old Clinical indication: Other: AMS; Additional info: Altered mental status TECHNIQUE: Imaging protocol: XR of the chest Views: 1 view. COMPARISON: CT Chest without contrast 12/25/2019 8:20 AM FINDINGS: Tubes, catheters and devices: Endotracheal tube tip terminates 6 cm above the darin. Left-sided cardiac pacemaker in place. Enteric tube tip terminates in the stomach. Lungs: No focal areas of consolidation. Pleural space: No pleural effusion or pneumothorax. Heart/Mediastinum: Cardiac and mediastinal silhouettes are unremarkable. Bones/joints: No acute osseus lesion or fracture. IMPRESSION: 1. No acute cardiopulmonary findings. 2. Lines and tubes, as above. Electronically signed by: Devyn Fountain On 02/04/2020 16:23:20 PM
[2020-02-04 16:27] VITALS: BP 159/90
[2020-02-04 16:32] VITALS: BP 172/90
[2020-02-04] MEDS ORDERED: hydrALAZINE 20MG/ML 1ML VIAL (J0360 PER 20MG) As Ordered ONE (17:08)
[2020-02-04] MEDS ORDERED: hydrALAZINE 20MG/ML 1ML VIAL (J0360 PER 20MG) IV PRN (17:15)
[2020-02-04 17:30] VITALS: BP 142/72
--- NOTE | 2020-02-04 20:54 | ECGEPIP ---
[facility] - ED Test Date: 2020-02-04 Pat Name: JUSTICE KENNEDY Department: Room: - Gender: Male Multimedia Author: : 1945 Requested By: DORY [place] Order Number: [id number] Reading MD: Cathie Gaines Measurements Intervals [place] Rate: 115 P: [place]: 0 QRS: -68 QRSD: 121 T: 67 QT: 360 QTc: 500 Interpretive Statements ATRIAL FIBRILLATION WITH RAPID VENTRICULAR RESPONSE MARKED LEFT AXIS DEVIATION RIGHT BUNDLE BRANCH BLOCK baseline artifact may affect interpretation POSSIBLE INFERIOR INFARCT, AGE INDETERMINATE NO PRIOR Electronically Signed on 02-04-2020 20:54:42 EDT by Cathie Gaines
== END 2020-02-04 17:39 | disposition short-term general hospital (02) ==
LOC: M ED 14:47 → EDBD 14:47 → M ED 17:39
DX: I61.6 Nontraumatic intracerebral hemorrhage, multiple localized (principal); S40.011A Contusion of right shoulder, initial encounter; S30.0XXA Contusion of lower back and pelvis, initial encounter; W01.0XXA Fall on same level from slipping, tripping and stumbling without subsequent striking against object, initial encounter; Y92.002 Bathroom of unspecified non-institutional (private) residence as the place of occurrence of the external cause; Y93.9 Activity, unspecified; Y99.9 Unspecified external cause status; I11.0 Hypertensive heart disease with heart failure; E11.9 Type 2 diabetes mellitus without complications; J44.9 Chronic obstructive pulmonary disease, unspecified; G47.33 Obstructive sleep apnea (adult) (pediatric); F17.200 Nicotine dependence, unspecified, uncomplicated; Z88.0 Allergy status to penicillin; Z88.2 Allergy status to sulfonamides; Z79.01 Long term (current) use of anticoagulants; Z79.899 Other long term (current) drug therapy
CPT/HCPCS: 36600; 51702; 70450; 71045; 72125; 80047; 80076; 81001; 82803; 83605; 83930; 84443; 84484; 85025; 85610; 85730; 86927; 87040; 93005; 93041; 94760; 96361; 96365; 96375; 99285; G0480; J0330; J0360; J3430; P9017